=== PATIENT | female | born 1950 | race Caucasian/White ===

== ENCOUNTER 2017-10-17 12:02 | Emergency (ER) | payer OTHER ==
[~2017-10-17] VITALS: Ht 162.6 cm; Wt 77.0 kg
[~2017-10-17 12:02] MED LIST: CALCTAB70 PO; FISH1000 PO; TAB-TAB PO
[2017-10-17 12:09] VITALS: BP 115/65; PULSE 90; RESP 12; TEMP 98.7; O2SAT 97
--- NOTE | 2017-10-17 12:27 | PD ---
HPI . Rectal bleeding Chief Complaint: GI Complaint Time Seen by Provider: 12:17 Travel History International Travel<30 days: No Contact w/Intl Traveler<30days: No Traveled to known affect area: No History of Present Illness HPI Patient presents for the evaluation of rectal bleeding. Onset was yesterday. She states that her symptoms started as nausea, vomiting and diarrhea. She later developed bright red blood per rectum. She estimates approximately 5 episodes yesterday and 2 episodes today. The symptoms are associated with some left-sided, crampy abdominal pain which she describes is very mild. She denies any previous similar history. She is not on any anticoagulants. [facility] Past Medical History Cancer: No Cardiovascular Problems: No Diabetes: No Endocrine: No Genitourinary: No Hepatitis: No Hiatal Hernia: Yes Immune Disorder: No Musculoskeletal: No Neurologic: No Psychiatric: No Reproductive: No Respiratory: No Thyroid Disease: No ?: Not Past Surgical History Abdominal Surgery: No AICD: No Cardiac Surgery: No Ear Surgery: No Endocrine Surgery: No Eye Surgery: Yes (RIGHT MACULAR BUCKLE) Genitourinary Surgery: No Gynecologic Surgery: Yes (HYSTERECTOMY) Hysterectomy: Yes Joint Replacement: No Oral Surgery: Yes (tonsillectomy) Pacemaker: No Thoracic Surgery: No Social History Tobacco Use: No Substance Use: No Allergies-Medications (Allergen,Severity, Reaction): Coded Allergies: No Known Allergies (Unverified , 10/17/17) Reported Meds & Prescriptions Reported Meds & Active Scripts Active No Active Prescriptions or Reported Medications Review of Systems Except as stated in HPI: all other systems reviewed are Neg General / Constitutional: No: Fever, Chills Gastrointestinal: Positive: Nausea, Vomiting, Diarrhea, Abdominal Pain, Hematochezia Physical Exam Narrative GENERAL: Awake and alert and in no acute distress. SKIN: warm/dry. Good color. HEAD: Normocephalic. Atraumatic. EYES: Pupils equal and round. No scleral icterus. No injection or drainage. ENT: No nasal bleeding or discharge. Mucous membranes pink and moist. NECK: Trachea midline. Full range of motion without pain.. CARDIOVASCULAR: Regular rate and rhythm. Heart sounds are normal. RESPIRATORY: No accessory muscle use. Clear to auscultation. Breath sounds equal bilaterally. GASTROINTESTINAL: Abdomen soft. Nontender. Bowel sounds present. Nondistended. RECTAL: There was no stool in the rectal vault. No masses palpated. No hemorrhoids. MUSCULOSKELETAL: No obvious deformities. NEUROLOGICAL: Awake and alert. No obvious cranial nerve deficits. Motor grossly within normal limits. Normal speech. PSYCHIATRIC: Appropriate mood and affect; insight and judgment normal. Data Data Last Documented VS Vital Signs Date Time Temp Pulse Resp B/P (MAP) Pulse Ox O2 Delivery O2 Flow Rate FiO2 10/17/17 12:09 98.7 90 12 115/65 (82) 97 Orders Orders Basic Metabolic Panel (Bmp) (10/17/17 12:23) Complete Blood Count With Diff (10/17/17 12:23) Prothrombin Time / Inr (Pt) (10/17/17 12:23) Act Partial Throm Time (Ptt) (10/17/17 12:23) Type And Screen (10/17/17 12:23) Iv Access Insert/Monitor (10/17/17 12:23) Ondansetron Inj (Zofran Inj) (10/17/17 12:30) Sodium Chloride 0.9% Flush (Ns Flush) (10/17/17 12:30) Ct Abd/Pel W Iv Contrast(Rout) (10/17/17 12:23) Iohexol 350 Inj (Omnipaque 350 Inj) (10/17/17 13:33) Labs Laboratory Tests Test 10/17/17 12:30 White Blood Count 12.8 TH/MM3 Red Blood Count 4.45 MIL/MM3 Hemoglobin 12.0 GM/DL Hematocrit 37.0 % Mean Corpuscular Volume 83.2 FL Mean Corpuscular Hemoglobin 27.0 PG Mean Corpuscular Hemoglobin Concent 32.4 % Red Cell Distribution Width 16.1 % Platelet Count 263 TH/MM3 Mean Platelet Volume 8.0 FL Neutrophils (%) (Auto) 77.9 % Lymphocytes (%) (Auto) 13.9 % Monocytes (%) (Auto) 7.1 % Eosinophils (%) (Auto) 0.6 % Basophils (%) (Auto) 0.5 % Neutrophils # (Auto) 9.9 TH/MM3 Lymphocytes # (Auto) 1.8 TH/MM3 Monocytes # (Auto) 0.9 TH/MM3 Eosinophils # (Auto) 0.1 TH/MM3 Basophils # (Auto) 0.1 TH/MM3 CBC Comment DIFF FINAL Differential Comment Prothrombin Time 10.9 SEC Prothromb Time International Ratio 1.1 RATIO Activated Partial Thromboplast Time 23.9 SEC Blood Urea Nitrogen 28 MG/DL Creatinine 0.85 MG/DL Random Glucose 130 MG/DL Calcium Level 8.1 MG/DL Sodium Level 141 MEQ/L Potassium Level 3.7 MEQ/L Chloride Level 110 MEQ/L Carbon Dioxide Level 24.2 MEQ/L Anion Gap 7 MEQ/L Estimat Glomerular Filtration Rate 67 ML/MIN MDM Medical Decision Making Medical Screen Exam Complete: Yes Emergency Medical Condition: Yes Differential Diagnosis Differential diagnosis includes but is not limited to hemorrhoid, diverticulitis , cancer, coagulopathy Narrative Course This patient presents with rectal bleeding associated with crampy left-sided abdominal pain. An IV will be started. She will be treated for nausea with Zofran. She states that she does not have pain currently. Workup is in process to look for possible diverticulitis. CBC & BMP Diagram 10/17/17 12:30 Calcium Level 8.1 L Coags are normal. Last Impressions Abdomen/Pelvis CT 10/17/17 1223 Signed Impressions: Service Date/Time: Tuesday, October 17, 2017 13:25 - CONCLUSION: 1. There is some thickening involving the wall of the descending and sigmoid colon diffusely suggestive of probable colitis. There is no evidence of mechanical obstruction. 2. Large hiatal hernia the GE junction. Kevin Ramirez MD The patient reports that she feels well and would like to go home. I will discharge her to home with prescriptions for Cipro, Flagyl, Zofran and [place] Wier. She should follow-up with her primary care physician within a week. She has been given strict instructions to return here if she develops any signs or symptoms of anemia such as dizziness, shortness of breath, chest pain. Diagnosis Primary Impression: Colitis Patient Instructions: Colitis (ED), General Instructions Additional Instructions: Return here for any signs or symptoms of anemia such as feeling weak or dizzy, chest pain, shortness of breath Med/Other Pt SpecificInfo: Prescription(s) given Scripts Hydrocodone-Acetaminophen (Bon [place]ier) 5 Mg-325 Mg Tab 1 TAB PO Q4H Y for PAIN, #12 TAB 0 Refills Prov: Jillian Estrada MD 10/17/17 Ondansetron (Zofran) 4 Mg Tab 4 MG PO Q6HR Y for NAUSEA OR VOMITING, #12 TAB 0 Refills Prov: Jillian Estrada MD 10/17/17 Metronidazole (Flagyl) 500 Mg Tab 500 MG PO BID for Infection for 7 Days, #14 TAB 0 Refills Prov: Jillian Estrada MD 10/17/17 Ciprofloxacin (Cipro) 500 Mg Tab 500 MG PO BID for Infection for 10 Days, #20 TAB 0 Refills Prov: Jillian Estrada MD 10/17/17 Disposition: 01 DISCHARGE HOME Condition: Stable Jillian Estrada MD Oct 17, 2017 12:27
[2017-10-17] MEDS ORDERED: ONDANSETRON HCL 4 MG/2 ML VIAL IVP ONE (12:30)
[2017-10-17] MEDS ORDERED: SODIUM CHLORIDE 0.9% FLUSH 10 ML FLUSH IVF PRN (12:30)
[2017-10-17 12:45] LABS: AUTOMATED NEUTROPHIL # 9.9 TH/MM3 (1.8-7.7); BASOPHIL # 0.1 TH/MM3 (0-0.2); BASOPHIL % 0.5 % (0.0-2.0); EOSINOPHIL # 0.1 TH/MM3 (0-0.4); EOSINOPHIL % 0.6 % (0.0-4.0); LYMPH % 13.9 % (9.0-44.0); LYMPHOCYTE # 1.8 TH/MM3 (1.0-4.8); MEAN CELL VOLUME 83.2 FL (80.0-100.0); MEAN CORPUSCULAR HGB CONC 32.4 % (32.0-36.0); MONO % 7.1 % (0.0-8.0); MONOCYTE # 0.9 TH/MM3 (0-0.9); NEUT % 77.9 % (16.0-70.0); PLATELET COUNT 263 TH/MM3 (150-450); RED BLOOD COUNT 4.45 MIL/MM3 (4.00-5.30); RED CELL DISTRIBUTION WIDTH 16.1 % (11.6-17.2); WHITE BLOOD COUNT 12.8 TH/MM3 (4.0-11.0)
[2017-10-17 12:59] LABS: BICARBONATE 24.2 MEQ/L (21.0-32.0); CALCIUM 8.1 MG/DL (8.5-10.1)
[2017-10-17 13:00] LABS: INTERNATIONAL NORMALIZED RATIO 1.1 RATIO; PROTHROMBIN TIME - PATIENT 10.9 SEC (9.8-11.6)
[2017-10-17 13:03] LABS: CREATININE 0.85 MG/DL (0.50-1.00)
[2017-10-17] MEDS ORDERED: IOHEXOL 350 MG/ML 10 ML VIAL (for RAD DIAG) IVCONTRAST ONE (13:33)
--- NOTE | 2017-10-17 13:48 | RADRPT ---
EXAM DATE/TIME: 10/17/2017 13:25 [facility] COMPARISON: No previous studies available for comparison. INDICATIONS : Left sided crampy abdominal pain. Rectal bleeding. Nausea, vomiting and diarrhea. IV CONTRAST: 85 cc Omnipaque 350 (iohexol) IV ORAL CONTRAST: No oral contrast ingested. RADIATION DOSE: 11.30 CTDIvol (mGy) MEDICAL HISTORY : Gastroesophageal reflux disease. Hernia, hiatal. SURGICAL HISTORY : Hysterectomy. ENCOUNTER: Initial ACUITY: 1 day PAIN SCALE: 3/10 LOCATION: Left abdomen. TECHNIQUE: Volumetric scanning of the abdomen and pelvis was performed. Using automated exposure control and ad justment of the mA and/or kV according to patient size, radiation dose was kept as low as reasonably achievable to obtain optimal diagnostic quality images. DICOM format image data is available electro nically for review and comparison. FINDINGS: LOWER LUNGS: The visualized lower lungs are clear. Large hiatal hernia the GE junction. LIVER: Homogeneous density without lesion. There is no dilation of the biliary tree. No calcified gallston es. SPLEEN: Normal size without lesion. PANCREAS: Within normal limits. KIDNEYS: Normal in size and shape. There is no mass, stone or hydronephrosis. ADRENAL GLANDS: Within normal limits. VASCULAR: There is no aortic aneurysm. BOWEL/MESENTERY: The bowel gas pattern is within normal limits. There is no evidence of obstruction. There is stool se en throughout the right colon and transverse colon. The descending colon and sigmoid colon is collaps ed with what appears to be some mucosal thickening extending from the splenic flexure down through th e sigmoid colon. This suggests some probable colitis. A few scattered diverticula are seen along the sigmoid colon. No free fluid or loculated fluid collections are seen. ABDOMINAL WALL: Within normal limits. RETROPERITONEUM: There is no lymphadenopathy. BLADDER: No wall thickening or mass. REPRODUCTIVE: Within normal limits. INGUINAL: There is no lymphadenopathy or hernia. MUSCULOSKELETAL: Within normal limits for patient age. Primary degenerative changes. CONCLUSION: 1. There is some thickening involving the wall of the descending and sigmoid colon diffusely suggesti ve of probable colitis. There is no evidence of mechanical obstruction. 2. Large hiatal hernia the GE junction. Kevin Ramirez MD on October 17, 2017 at 13:42 Board Certified Radiologist. This report was verified electronically.
[2017-10-17] MEDS ORDERED: NORC5TAB PO (14:23)
[2017-10-17] MEDS ORDERED: METR-1 PO (14:23)
[2017-10-17] MEDS ORDERED: CIPR-9 PO (14:23)
[2017-10-17] MEDS ORDERED: ZOFR4TAB PO (14:23)
[2017-10-17 14:36] VITALS: BP 112/67
== END 2017-10-17 14:36 | disposition home or self-care (01) ==
LOC: PHED 12:02
DX: K52.9 Noninfective gastroenteritis and colitis, unspecified (principal); K44.9 Diaphragmatic hernia without obstruction or gangrene
CPT/HCPCS: 74177; 80048; 85025; 85610; 85730; 86850; 86900; 86901; 96374; 99284; J2405; Q9967